=== PATIENT | male | born 1935 | race Caucasian/White ===

== ENCOUNTER → 2016-09-30 | Outpatient (CLI) | payer MEDICARE, BC ==
[2016-09-30 09:28] LABS: ALT 34 U/L (21-72); AST 30 U/L (17-59); Alkaline Phosphatase 119 U/L (38-126); Anion Gap 7 mmol/L; Blood Urea Nitrogen 22 mg/dL (9-20); Calcium 9.3 mg/dL (8.4-10.2); Carbon Dioxide 29 mmol/L (22-30); Chloride 105 mmol/L (98-107); Cholesterol 122 mg/dL (<200); Glucose 126 mg/dL (74-99); HDL Cholesterol 38 mg/dL (40-60); Non-African American GFR(MDRD) >60 (>60 ml/min/1.73 sqM); Potassium 4.8 mmol/L (3.5-5.1); Sodium 141 mmol/L (137-145); Total Bilirubin 0.8 mg/dL (0.2-1.3); Total Protein 6.8 g/dL (6.3-8.2); Triglycerides 93 mg/dL (<150)
== END | disposition home or self-care (01) ==
LOC: LABWHC1 08:41
PROVIDERS: ATTEND Internal Medicine Interventional Cardiology
DX: E78.2 Mixed hyperlipidemia (principal)
CPT/HCPCS: 36415; 80053; 80061

== ENCOUNTER → 2017-10-27 | Outpatient (CLI) | payer BC, MEDICARE ==
[2017-10-27 08:58] LABS: Albumin 4.1 g/dL (3.5-5.0); Calcium 8.9 mg/dL (8.4-10.2); Potassium 4.5 mmol/L (3.5-5.1); Total Bilirubin 1.1 mg/dL (0.2-1.3); Total Protein 6.4 g/dL (6.3-8.2)
== END | disposition home or self-care (01) ==
LOC: LABWHC1 07:31
PROVIDERS: ATTEND Internal Medicine Interventional Cardiology
DX: E78.2 Mixed hyperlipidemia (principal)
CPT/HCPCS: 36415; 80053; 80061

== ENCOUNTER → 2018-05-28 | Outpatient (CLI) | payer MEDICARE ==
[2018-05-28 17:17] LABS: Albumin 4.5 g/dL (3.80-4.90); Albumin/Globulin Ratio 2.81 (1.20-2.10); Anion Gap 8.4 mmol/L (4.00-12.00); Calcium 9.2 mg/dL (8.7-10.3); Carbon Dioxide 27.6 mmol/L (21.6-31.8); Globulin 1.6 g/dL (1.6-3.3); LDL Cholesterol,Calculated 66.2 mg/dL (0.0-131.0); Potassium 4.2 mmol/L (3.5-5.5); Total Bilirubin 1.3 mg/dL (0.3-1.2); Total Protein 6.1 g/dL (6.2-8.2); VLDL Calculation 27.8 mg/dL (5.00-40.00)
== END | disposition home or self-care (01) ==
LOC: LABWHC1 08:36
PROVIDERS: ATTEND Nurse Practitioner Adult Health
DX: E78.2 Mixed hyperlipidemia (principal)
CPT/HCPCS: 36415; 80053; 80061

== ENCOUNTER 2018-10-09 16:52 | Emergency (ER) | payer MEDICARE ==
[2018-10-09 17:03] VITALS: TEMP 97
--- NOTE | 2018-10-09 17:14 | ED ---
Neuro HPI - General Chief Complaint: Neuro Symptoms/Deficit Stated Complaint: Poss STEMI Time Seen by Provider: 10/09/18 16:53 Source: EMS, RN notes reviewed, old records reviewed Mode of arrival: EMS Limitations: altered mental status - History of Present Illness Is the patient presenting with stroke symptoms?: Yes -: hour(s) (6) Initial Comments: This is an 83-year-old male the ER for evaluation. Patient coming in for evaluation of multiple complaints by EMS. EMS brings him patient unresponsive, per patient was unresponsive and not acting appropriately since about 11 AM this morning. Patient having significant right-sided deficits and EMS states ST elevation on EKG. Patient remains unresponsive although arousable here in the ER. Significant with mild cold with multiple abnormal vital signs including low blood pressure Location: speech, altered History of same: No Place: home Severity: severe Quality: weak Improves With: none Worsens With: none Context: sudden onset Associated Symptoms: chest pain, nausea/vomiting, weakness Treatments Prior to Arrival: none - Related Data Home Medications: Home Medications Medication Instructions Recorded Confirmed Aspirin 81 tab PO DAILY 01/27/15 10/09/18 Captopril [Capoten] 25 tab PO TID 01/27/15 10/09/18 Cholecalciferol [Vitamin D3 (25 2,000 unit PO DAILY 01/27/15 10/09/18 Mcg = 1000 Iu)] Cyanocobalamin [Vitamin B-12] 1,000 mcg PO DAILY 01/27/15 10/09/18 Ascorbic Acid [Vitamin C] 1,000 mg PO DAILY 10/09/18 10/09/18 Melatonin 10 mg PO HS 10/09/18 10/09/18 diphenhydrAMINE [Benadryl] 25 mg PO DAILY PRN 10/09/18 10/09/18 Previous Rx's Medication Instructions Recorded Atorvastatin [Lipitor] 80 mg PO DAILY #60 tab 01/29/15 Nitroglycerin Sl Tabs [Nitrostat] 0.4 mg SUBLINGUAL Q5M PRN #5 tab 01/29/15 Allergies/Adverse Reactions: Allergies Allergy/AdvReac Type Severity Reaction Status Date / Time No Known Allergies Allergy Verified 10/09/18 18:05 Review of Systems ROS Statement: Those systems with pertinent positive or pertinent negative responses have been documented in the HPI. ROS Other: All systems not noted in ROS Statement are negative. General Exam - General Exam Comments Initial Comments: NIH of 8, right-sided hemiparesis Limitations: altered mental status General appearance: alert, lethargic, in distress Head exam: Present: atraumatic, normocephalic, normal inspection Eye exam: Present: normal appearance, PERRL, EOMI. Absent: scleral icterus, conjunctival injection, periorbital swelling ENT exam: Present: normal exam, mucous membranes moist Neck exam: Present: normal inspection. Absent: tenderness, meningismus, lymphadenopathy Respiratory exam: Present: normal lung sounds bilaterally. Absent: respiratory distress, wheezes, rales, rhonchi, stridor Cardiovascular Exam: Present: regular rate, normal rhythm, normal heart sounds. Absent: systolic murmur, diastolic murmur, rubs, gallop, clicks GI/Abdominal exam: Present: soft, normal bowel sounds. Absent: distended, tenderness, guarding, rebound, rigid Extremities exam: Present: normal inspection, full ROM, normal capillary refill. Absent: tenderness, pedal edema, joint swelling, calf tenderness Back exam: Present: normal inspection Neurological exam: Present: altered, CN II-XII intact, other (Right-sided paralysis). Absent: oriented X3 (Somnolent but responsive) Psychiatric exam: Present: normal affect, normal mood Skin exam: Present: cyanosis, urticaria, pallor, mottled. Absent: rash Stroke MDM - Lab Data Result diagrams: 10/09/18 17:06 10/09/18 17:06 Lab Results 10/09/18 10/09/18 10/09/18 Range/Units 17:06 17:06 17:06 WBC 14.3 H (3.8-10.6) k/uL RBC 4.58 (4.30-5.90) m/uL Hgb 14.2 (13.0-17.5) gm/dL Hct 46.6 (39.0-53.0) % MCV 101.8 H (80.0-100.0) fL MCH 31.0 (25.0-35.0) pg MCHC 30.4 L (31.0-37.0) g/dL RDW 13.2 (11.5-15.5) % Plt Count 88 L (150-450) k/uL Neutrophils % 86 % Lymphocytes % 8 % Monocytes % 4 % Eosinophils % 0 % Basophils % 0 % Neutrophils # 12.4 H (1.3-7.7) k/uL Lymphocytes # 1.1 (1.0-4.8) k/uL Monocytes # 0.6 (0-1.0) k/uL Eosinophils # 0.0 (0-0.7) k/uL Basophils # 0.0 (0-0.2) k/uL Hypochromasia Moderate Macrocytosis Slight PT (9.0-12.0) sec INR (<1.2) APTT (22.0-30.0) sec Sodium 144 (137-145) mmol/L Potassium 4.9 (3.5-5.1) mmol/L Chloride 108 H (98-107) mmol/L Carbon Dioxide 12 L (22-30) mmol/L Anion Gap 24 mmol/L BUN 25 H (9-20) mg/dL Creatinine 2.74 H (0.66-1.25) mg/dL Est GFR (CKD-EPI)AfAm 24 (>60 ml/min/1.73 sqM) Est GFR (CKD-EPI)NonAf 21 (>60 ml/min/1.73 sqM) Glucose 202 H (74-99) mg/dL Calcium 9.3 (8.4-10.2) mg/dL Magnesium 2.4 H (1.6-2.3) mg/dL Total Bilirubin 2.5 H (0.2-1.3) mg/dL AST 1254 H (17-59) U/L ALT 877 H (21-72) U/L Alkaline Phosphatase 110 (38-126) U/L Troponin I (0.000-0.034) ng/mL NT-Pro-B Natriuret Pep 5380 pg/mL Total Protein 6.6 (6.3-8.2) g/dL Albumin 4.3 (3.5-5.0) g/dL Lipase 143 (23-300) U/L 10/09/18 10/09/18 Range/Units 17:06 17:06 WBC (3.8-10.6) k/uL RBC (4.30-5.90) m/uL Hgb (13.0-17.5) gm/dL Hct (39.0-53.0) % MCV (80.0-100.0) fL MCH (25.0-35.0) pg MCHC (31.0-37.0) g/dL RDW (11.5-15.5) % Plt Count (150-450) k/uL Neutrophils % % Lymphocytes % % Monocytes % % Eosinophils % % Basophils % % Neutrophils # (1.3-7.7) k/uL Lymphocytes # (1.0-4.8) k/uL Monocytes # (0-1.0) k/uL Eosinophils # (0-0.7) k/uL Basophils # (0-0.2) k/uL Hypochromasia Macrocytosis PT 12.3 H (9.0-12.0) sec INR 1.2 H (<1.2) APTT 22.4 (22.0-30.0) sec Sodium (137-145) mmol/L Potassium (3.5-5.1) mmol/L Chloride (98-107) mmol/L Carbon Dioxide (22-30) mmol/L Anion Gap mmol/L BUN (9-20) mg/dL Creatinine (0.66-1.25) mg/dL Est GFR (CKD-EPI)AfAm (>60 ml/min/1.73 sqM) Est GFR (CKD-EPI)NonAf (>60 ml/min/1.73 sqM) Glucose (74-99) mg/dL Calcium (8.4-10.2) mg/dL Magnesium (1.6-2.3) mg/dL Total Bilirubin (0.2-1.3) mg/dL AST (17-59) U/L ALT (21-72) U/L Alkaline Phosphatase (38-126) U/L Troponin I 36.900 H* (0.000-0.034) ng/mL NT-Pro-B Natriuret Pep pg/mL Total Protein (6.3-8.2) g/dL Albumin (3.5-5.0) g/dL Lipase (23-300) U/L - NIH Stroke Scale 1a. Level of Consciousness: (2) not alert, rep stimuli 1b. LOC Questions: (2) answers no questions correctly 1c. LOC Commands: (2) performs no tasks correctly 2. Best Gaze: (0) normal 3. Visual: (0) no visual loss 4. Facial Palsy: (3) complete paralysis 5a. Motor Arm Left: (0) no drift 5b. Motor Arm Right: (4) no movement 6a. Motor Leg Left: (0) no drift 6b. Motor Leg Right: (4) no movement 7. Limb Ataxia: (2) present 2 limbs 8. Sensory: (1) mild/moderate sensory loss 9. Best Language: (1) mild/moderate aphasia 10. Dysarthria: (1) mild/moderate dysarthria 11. Extinction/Inattention: (0) no abnormality - Thrombolytic Inclusion/Exclusion Thrombolytic Exclusion Criteria: Symptom Onset > 3 Hours - Radiology Data Radiology results: report reviewed (CT brain CTa head and neck is positive r vertebral occlusion, CT angio thoracic is negative for acute disease), image reviewed - EKG Data -: EKG Interpreted by Me (EKG showing ST elevation in a rate of 75, QRS 100, QTc 451, patient does astudillo) When compared to previous EKG there are: changes noted Interpretation: acute MA Past Medical History Past Medical History: Chest Pain / Angina, Deep Vein Thrombosis (DVT), Hyperlipidemia, Hypertension Additional Past Medical History / Comment(s): parksinsons/essential tremors History of Any Multi-Drug Resistant Organisms: None Reported Past Surgical History: Appendectomy, Coronary Bypass/CABG, Tonsillectomy Additional Past Surgical History / Comment(s): brain stimulators place on bilat chest rhodes Past Anesthesia/Blood Transfusion Reactions: No Reported Reaction Past Psychological History: No Psychological Hx Reported Smoking Status: Former smoker Past Alcohol Use History: None Reported Past Drug Use History: None Reported - Past Family History Father Family Medical History: Myocardial Infarction (MA) Course Vital Signs 10/09/18 10/09/18 10/09/18 16:53 16:56 17:00 Temperature 97 F L Pulse Rate 93 93 86 Respiratory 18 28 H 29 H Rate Blood Pressure 102/54 102/54 102/54 O2 Sat by Pulse 94 L Oximetry 10/09/18 10/09/18 10/09/18 17:10 17:20 17:30 Temperature Pulse Rate 95 Respiratory 28 H Rate Blood Pressure 102/54 102/54 71/57 O2 Sat by Pulse 100 Oximetry 10/09/18 10/09/18 10/09/18 17:40 17:50 18:00 Temperature Pulse Rate 60 57 L 50 L Respiratory 32 H 25 H 25 H Rate Blood Pressure 86/66 72/45 96/49 O2 Sat by Pulse 96 92 L Oximetry - Reevaluation(s) Reevaluation #1: 10/09/18 17:13 Medical record reviewed as well as prior EKG Reevaluation #2: 10/09/18 17:13 Spoke with both on-call neurology secondary to right-sided hemiparesis code stroke as well as on-call cardiology secondary to ST elevation on EKG. Reevaluation #3: 10/09/18 17:47 Patient remains altered a little is responsive improving with hydration, exam remains mildly cold and extremities. Spoke with who does want patient to be full code at this time Reevaluation #4: 10/09/18 17:47 Patient is having chest pain currently Reevaluation #5: 10/09/18 18:01 In speaking with family , is patient's sons at length secondary to patient's severe cardiogenic shock from massive heart attack unresponsiveness, patient has multiple organ dysfunction from shock including his brain resulting his neurological symptoms from his old stroke, shock liver, kidney failure, becoming more bradycardic and unresponsive mentally. Decision is made to make patient no code and comfort care. Family is at bedside agreeable of decision 10/09/18 18:29 Patient reevaluated with family at bedside at this point patient is apneic, no cardiac activity noted, patient remains pale pupils 6 and dilated no heart sounds noted on exam, patient pronounced at 1826 of 10/09/2018 - Consultations Consultation #1: Focal neuro intervention was, no findings and CTA head and neck that would allow for embolectomy, patient is out of window for TPA Consultation #2: Spoke with cardiology who will evaluate patient here in the emergency room and speak with family regarding treatment Critical Care Time Critical Care Time: Yes Total Critical Care Time: 31 Disposition Clinical Impression: Cerebrovascular accident, Cardiogenic shock, Myocardial infarct, Shock liver, Renal failure, Cardiopulmonary arrest Disposition: Condition: Critical Is patient prescribed a controlled substance at d/c from ED?: No Referrals: None,Stated [Primary Care Provider] - 1-2 days Preliminary Cause of : CPA
[2018-10-09 17:18] LABS: Basophils % (A) 0 %; Eosinophils % (A) 0 %; HCT 46.6 % (39.0-53.0); HGB 14.2 gm/dL (13.0-17.5); Hypochromasia Moderate; Lymphocytes # (A) 1.1 k/uL (1.0-4.8); Lymphocytes % (A) 8 %; MCHC 30.4 g/dL (31.0-37.0); MCV 101.8 fL (80.0-100.0); Macrocytosis Slight; Mean Platelet Volume 8.2; Monocytes # (A) 0.6 k/uL (0-1.0); Monocytes % (A) 4 %; Neutrophils # (A) 12.4 k/uL (1.3-7.7); Neutrophils % (A) 86 %; RBC 4.58 m/uL (4.30-5.90); RDW 13.2 % (11.5-15.5); WBC 14.3 k/uL (3.8-10.6)
[2018-10-09] MEDS: SODIUM CHLORIDE 0.9% 1,000 ML IV STA ×2 (17:24→17:42)
[2018-10-09 17:27] LABS: Albumin 4.3 g/dL (3.5-5.0); Calcium 9.3 mg/dL (8.4-10.2); Magnesium 2.4 mg/dL (1.6-2.3); Potassium 4.9 mmol/L (3.5-5.1); Total Bilirubin 2.5 mg/dL (0.2-1.3); Total Protein 6.6 g/dL (6.3-8.2)
--- NOTE | 2018-10-09 17:28 | CT ---
EXAMINATION TYPE: CT brain wo con for TPA DATE OF EXAM: 10/09/2018 COMPARISON: 05/03/2015 HISTORY: Right sided weakness. CT DLP: 1694 mGycm Automated exposure control for dose reduction was used. FINDINGS: There is bilateral thalamic implants. There is hypodensity in the periventricular white matter. There is old large left parietal cortical infarct. This measures 4.5 x 4 cm. There is no mass effect nor m idline shift. There is no sign of intracranial hemorrhage. There is cerebral atrophy. The calvarium i s intact. IMPRESSION: BILATERAL THALAMIC ELECTRODES. CEREBRAL ATROPHY AND CHRONIC SMALL VESSEL ISCHEMIA. OLD LEFT PARIETAL INFARCT. NO CHANGE COMPARED TO OLD EXAM.
[2018-10-09 17:34] LABS: INR 1.2 (<1.2); Partial Thromboplastin Time 22.4 sec (22.0-30.0); Prothrombin Time 12.3 sec (9.0-12.0)
[2018-10-09] MEDS ORDERED: SODIUM CHLORIDE 0.9% 1,000 ML IV STA (17:39)
[2018-10-09 17:40] LABS: Platelet Count 88 k/uL (150-450)
[2018-10-09] MEDS ORDERED: SODIUM BICARB 8.4% 50 ML SYR (1 MEQ/ML) IV STA (17:45)
--- NOTE | 2018-10-09 18:01 | CT ---
EXAMINATION TYPE: CT angio head neck DATE OF EXAM: 10/09/2018 HISTORY: Right sided weakness. COMPARISON: None CT DLP: 362.9 mGycm. Automated Exposure Control for Dose Reduction was Utilized. TECHNIQUE: CTA scan of the neck and brain is performed with IV Contrast, patient injected with 50ml mL of Isovue 370, axial images are obtained, coronal and sagittal reformatted images are reviewed. Th ree-D reconstructed images are created on an independent workstation and reviewed. FINDINGS: Thoracic aorta is atheromatous. There is normal branching pattern of the great vessels on the aortic arch. There is bilateral arterial flow in the subclavian arteries. There is arterial flow in the comm on internal and external carotid arteries bilaterally. There is moderate calcified plaque formation a t the carotid artery bifurcations. There is estimated 25% stenosis at the origins of both internal ca rotid arteries. There is diffuse luminal narrowing of the left internal carotid artery. Right interna l carotid artery is more normal size. There is no flow seen in the right vertebral artery. Left vertebral artery is patent with variable gustavo shruti narrowing. There is patency of the distal left vertebral artery. There is filling of the basila r artery which is quite small. There are diminutive posterior cerebral arteries. There is arterial fl ow in the anterior middle and posterior cerebral arteries. There is diminutive anterior cerebral bradly rachel. There is bilateral thalamic electrodes. There is hypodensity in the periventricular white matte r. There is no evidence of intracranial aneurysm or neovascularity. There is no mass effect. There ar e diminutive distal branches of the anterior cerebral arteries. Distal middle cerebral arteries are a lso small. I see no significant contrast in the venous sinuses. There is no contrast seen in the jugu lar veins. This probably reflects a slow flow of the intracranial arteries. IMPRESSION: Atherosclerotic vascular disease. Mild stenosis at the origins of both internal carotid arteries. The re is occlusion of the right vertebral artery. There is diminished size of the intracranial arteries that suggests decreased blood flow. No intracra nial aneurysm.
[2018-10-09 18:02] VITALS: BP 96/49; PULSE 50; RESP 25
--- NOTE | 2018-10-09 18:13 | CT ---
EXAMINATION TYPE: CT angio thor/abd pel aorta DATE OF EXAM: 10/09/2018 COMPARISON: None HISTORY: Right sided weakness. CT DLP: 798.9 mGycm. Automated Exposure Control for Dose Reduction was Utilized. CONTRAST: CT scan of the thorax, abdomen and pelvis is performed with IV Contrast, patient injected with 50ml m L of Isovue 370. FINDINGS: There are 3-D post processed images. There is mild fibrotic change and subsegmental atelectasis at th e lung bases. Heart is enlarged. There is no pericardial effusion. Abdominal aorta is atheromatous. There is no aneurysm or dissection. There is peribronchial atheroscl erotic plaque. There is no evidence of aortic stenosis. There is patency of the celiac artery and sup erior mesenteric artery. There is plaque formation at the origins of the celiac artery and superior m esenteric artery. There is bilateral plaque formation at the origins of the renal arteries. There is probably 50% stenosis at the origins of both renal arteries. There is bilateral patency of the common internal and external iliac arteries. There is bilateral patency of the femoral arteries. There is s ignificant plaque formation in the left internal iliac artery with stenosis more than 75%. There is a 1 cm calcified gallstone. Bile ducts are not dilated. Liver shows no focal defect. There i s no evidence of pancreatic mass. Spleen appears normal. Stomach appears fairly normal. There is no adrenal mass. There is mild renal cortical atrophy. There is 2 cm cortical cyst lateral l eft kidney. There is 1.5 cm cortical cyst posterior left kidney. There is no retroperitoneal adenopat hy. There is 5 cm enlarged prostate gland. There is no ascites there is no free air. There is no mese nteric edema. There is an electrical implanted device over the left mid abdomen. IMPRESSION: Atherosclerotic vascular disease. There is some stenosis of the distal left internal iliac artery. Th is is probably more than 75%. No aneurysm. There is stenosis of approximately 50% at the origins of t he renal and superior mesenteric and celiac arteries.
== END 2018-10-09 20:52 | disposition expired ==
LOC: EC 16:52
DX: I21.9 Acute myocardial infarction, unspecified (principal); I46.9 Cardiac arrest, cause unspecified; I63.211 Cerebral infarction due to unspecified occlusion or stenosis of right vertebral artery; K72.01 Acute and subacute hepatic failure with coma; N19 Unspecified kidney failure; R29.708 NIHSS score 8; I10 Essential (primary) hypertension; Z87.891 Personal history of nicotine dependence; Z79.82 Long term (current) use of aspirin; Z79.899 Other long term (current) drug therapy; Z95.1 Presence of aortocoronary bypass graft; Z96.89 Presence of other specified functional implants; Z82.49 Family history of ischemic heart disease and other diseases of the circulatory system
CPT/HCPCS: 99291; 96374; 96361; 36415; 83880; 80053; 83690; 83735; 84484; 85025; 85610; 85730; 70496; 70450; 70498; 71275; 74174; Q9967